=== PATIENT | male | born 1990 | race Caucasian/White ===

== ENCOUNTER 2020-12-25 19:30 | Emergency (ER) | payer BC ==
[~2020-12-25] VITALS: Ht 172.7 cm; Wt 68.2 kg
[~2020-12-25 19:30] MED LIST: CLEOCIN HCL300 MG PO; NO HOME MEDICATIONS
[2020-12-25 19:45] VITALS: TEMP 97.9
[2020-12-25 20:17] VITALS: BP 119/82; PULSE 62
== END 2020-12-25 20:17 | disposition home or self-care (01) ==
LOC: COL.ER 19:30
DX: S61.412A Laceration without foreign body of left hand, initial encounter (principal); F17.210 Nicotine dependence, cigarettes, uncomplicated; Z23 Encounter for immunization; Z88.0 Allergy status to penicillin; W26.0XXA Contact with knife, initial encounter; Y92.009 Unspecified place in unspecified non-institutional (private) residence as the place of occurrence of the external cause

== ENCOUNTER 2021-01-30 00:03 | Emergency (ER) | payer BC ==
[~2021-01-30] VITALS: Ht 172.7 cm; Wt 68.2 kg
[2021-01-30 03:01] VITALS: BP 129/74; PULSE 70; TEMP 98.1
== END 2021-01-30 03:01 | disposition home or self-care (01) ==
LOC: COL.ER 00:03
DX: S40.211A Abrasion of right shoulder, initial encounter (principal); S80.211A Abrasion, right knee, initial encounter; S80.811A Abrasion, right lower leg, initial encounter; S99.912A Unspecified injury of left ankle, initial encounter; M79.672 Pain in left foot; F17.210 Nicotine dependence, cigarettes, uncomplicated; Z88.0 Allergy status to penicillin; V86.56XA Driver of dirt bike or motor/cross bike injured in nontraffic accident, initial encounter